=== PATIENT | male | born 1970 | race Caucasian/White ===

== ENCOUNTER 2016-12-29 17:41 | Emergency (ER) | payer SELFPAY ==
[2016-12-29 18:17] LABS: BASOPHILS 0.4 % (0.0-2.0); EOSINOPHILS 3.1 % (0-7); HEMOGLOBIN 15.5 g/dL (13.5-17.5); IMMATURE GRANULOCYTES 0.2 % (0-5); LYMPHOCYTES 21.3 % (15-50); MCH 32.8 pg (26.0-34.0); MCHC 35.2 g/dL (31.0-37.0); MEAN PLATELET VOLUME 11.1 fL (7.4-10.4); MONOCYTES 8.3 % (2-11); NEUTROPHILS 66.7 % (40-80); RBC 4.73 10x6/uL (4.20-6.10); RDW 12.6 % (11.5-14.5); WBC 5.4 10x3/uL (4.8-10.8)
[2016-12-29 18:35] LABS: ALBUMIN 4.2 g/dL (3.4-5.0); ALKALINE PHOSPHATASE 97 U/L (46-116); ALT (SGPT) 41 U/L (10-68); CALC OSMOLALITY 279 mosm/kg (275-300); CARBON DIOXIDE 27.7 mmol/L (21.0-32.0); CHLORIDE - SERUM 103 mmol/L (98-107); CREATININE - SERUM 1.1 mg/dL (0.6-1.3); GLUCOSE 102 mg/dL (74-106); POTASSIUM - SERUM 4.2 mmol/L (3.5-5.1); PROTEIN - SERUM 7.6 g/dL (6.4-8.2); SODIUM 140 mmol/L (136-145); UREA NITROGEN 16 mg/dL (7-18); eGFR NON AFRICAN AMERICAN 77 mL/min (90-120)
[2016-12-29 18:39] LABS: PLATELET COUNT 156 10x3/uL (130-400)
[2016-12-29 18:50] LABS: CKMB 2.6 U/L (0.0-3.6); CREATINE KINASE 323 UL (21-232); TROPONIN-I < 0.017 ng/mL (0.000-0.060)
== END 2016-12-29 22:20 | disposition home or self-care (01) ==
LOC: D.ER 17:41
PROVIDERS: Emergency Medicine
DX: R07.89 Other chest pain (principal); J40 Bronchitis, not specified as acute or chronic; F17.200 Nicotine dependence, unspecified, uncomplicated